=== PATIENT | male | born 1960 | race Caucasian/White ===

== ENCOUNTER 2024-03-09 09:53 | Emergency (ER) | payer BC, MEDICARE ==
[2024-03-09 10:54] LABS: Basophils % (A) 0 %; Eosinophils # (A) 0.1 k/uL (0-0.7); Eosinophils % (A) 0 %; HCT 43.4 % (39.0-53.0); HGB 14.1 gm/dL (13.0-17.5); Lymphocytes # (A) 1.6 k/uL (1.0-4.8); Lymphocytes % (A) 11 %; MCH 29.3 pg (25.0-35.0); MCHC 32.6 g/dL (31.0-37.0); Monocytes # (A) 1.4 k/uL (0-1.0); Monocytes % (A) 10 %; Neutrophils # (A) 11.2 k/uL (1.3-7.7); Neutrophils % (A) 75 %; Platelet Count 364 k/uL (150-450); RBC 4.82 m/uL (4.30-5.90); RDW 13.2 % (11.5-15.5); WBC 14.9 k/uL (3.8-10.6)
[2024-03-09] MEDS: MORPHINE SULFATE 4 MG/ML SYRINGE IVP STA (10:58)
[2024-03-09] MEDS: KETOROLAC 15 MG/ML 1 ML VIAL IVP STA (10:58)
[2024-03-09 11:04] LABS: ALT 29 U/L (4-49); AST 25 U/L (17-59); African American GFR (CKD) >90 (>60 ml/min/1.73 sqM); Albumin 3.7 g/dL (3.5-5.0); Alkaline Phosphatase 63 U/L (38-126); Anion Gap 4 mmol/L; Blood Urea Nitrogen 17 mg/dL (9-20); Calcium 9.3 mg/dL (8.4-10.2); Carbon Dioxide 28 mmol/L (22-30); Chloride 106 mmol/L (98-107); Glucose 121 mg/dL (74-99); Non-African American GFR(CKD) >90 (>60 ml/min/1.73 sqM); Potassium 4.3 mmol/L (3.5-5.1); Sodium 138 mmol/L (137-145); Total Bilirubin 1.1 mg/dL (0.2-1.3); Total Protein 6.5 g/dL (6.3-8.2)
--- NOTE | 2024-03-09 11:14 | ED ---
Extremity Problem HPI - General Chief complaint: Extremity Injury, Lower Stated complaint: L Foot Pain Time Seen by Provider: 03/09/24 10:14 Source: patient, RN notes reviewed Mode of arrival: ambulatory Limitations: no limitations - History of Present Illness Initial comments: This is a 64-year-old male who presents to the emergency department for left foot and ankle swelling. States that this started 2 to 3 days ago and seems to be getting worse. Denies any injuries. States that this has gotten to the point where he has been unable to ambulate. 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 Denies any fever/chills or nausea/vomiting. MD Complaint: extremity pain, extremity swelling - Related Data Home Medications Medication Instructions Recorded Confirmed Ibuprofen [Motrin] 800 mg PO BID 06/18/16 06/22/16 Simvastatin [Zocor] 80 mg PO DAILY 06/18/16 06/22/16 Previous Rx's Medication Instructions Recorded Cephalexin [Keflex] 500 mg PO Q6HR 7 Days #28 cap 03/09/24 HYDROcodone/APAP 5-325MG [Mary Alice 1 tab PO Q6HR PRN 3 Days #12 tab 03/09/24 5-325] Ibuprofen [Motrin] 800 mg PO Q8H #30 tab 03/09/24 Sulfamethox-Tmp 800-160Mg [Bactrim 1 tab PO Q12HR 7 Days #14 tab 03/09/24 DS 800-160 mg] Allergies Allergy/AdvReac Type Severity Reaction Status Date / Time ciprofloxacin Allergy Rash/Hives Verified 03/09/24 10:00 BEE STRINGS Allergy Anaphylaxis Uncoded 03/09/24 10:00 Review of Systems ROS Statement: Those systems with pertinent positive or pertinent negative responses have been documented in the HPI. ROS Other: All systems not noted in ROS Statement are negative. Past Medical History Past Medical History: Hyperlipidemia, Osteoarthritis (OA) Additional Past Medical History / Comment(s): HX LT RIB FX/PNEUMOTHORAX/CHEST TUBE, HX OF COLON POLYPS. History of Any Multi-Drug Resistant Organisms: MRSA Date of last positivie culture/infection: 2006 MDRO Source:: right heel Past Surgical History: No Surgical Hx Reported Additional Past Surgical History / Comment(s): RT ELBOW SX HAS PLATE/SCREWS, RT HEEL CRUSHED (SURGERY WITH HARDWARE AND HARDWARE REMOVAL).,COLONOSCOPY. Past Anesthesia/Blood Transfusion Reactions: No Reported Reaction Past Psychological History: No Psychological Hx Reported Smoking Status: Never smoker Past Alcohol Use History: Abuse Past Drug Use History: None Reported - Past Family History Father Family Medical History: Congestive Heart Failure (CHF) Additional Family Medical History / Comment(s): AT AGE 84-PAST HX BRAIN TUMOR HAD [place] TX IN PAST AND MULTIPLE PROBLEMS SINCE THEN. PITUITARY PROBLEMS Mother Family Medical History: Dementia Additional Family Medical History / Comment(s): . General Exam Limitations: no limitations, physical limitation General appearance: alert, in no apparent distress Head exam: Present: atraumatic, normocephalic, normal inspection Respiratory exam: Present: normal lung sounds bilaterally. Absent: respiratory distress, wheezes, rales, rhonchi, stridor Cardiovascular Exam: Present: regular rate, normal rhythm, normal heart sounds. Absent: systolic murmur, diastolic murmur, rubs, gallop, clicks Extremities exam: Present: other (Swelling, erythema, and warmth to the lateral aspect of the left foot and ankle. Full range of motion. 2+ DP and PT pulses. No calf tenderness.) Neurological exam: Present: alert, oriented X3, CN II-XII intact Psychiatric exam: Present: normal affect, normal mood Course Vital Signs 03/09/24 03/09/24 03/09/24 09:56 12:00 12:57 Temperature 97.6 F 97.9 F 98.2 F Pulse Rate 85 62 65 Respiratory 18 16 18 Rate Blood Pressure 121/72 114/70 135/72 O2 Sat by Pulse 95 97 Oximetry Medical Decision Making - Medical Decision Making This is a 64-year-old male who presents to the emergency department for left foot and ankle pain. Was pt. sent in by a medical professional or institution? @ -No Did you speak to anyone other than the patient for history? @ -No Did you review nursing and triage notes? @ -Yes, and I agree, it is accurate with regards to the patient's symptoms. Were old charts reviewed? @ -No Differential Diagnosis? @ -Differential Musculoskeletal: Muscular strain, contusion, ligament sprain, fracture, arthritis, septic arthritis, bursitis, cellulitis, muscle spasm, nerve compression, DVT, arterial occlusion, herpes zoster, electrolyte abnormality, tumor.... This is not meant to be in all inclusive list EKG interpreted by me (3pts min.)? @ -None obtained X-rays interpreted by me (1pt min.)? @ -X-ray of the left foot and ankle obtained. My interpretation identifies no evidence of osseous erosion. CT interpreted by me (1pt min.)? @ -Not obtained U/S interpreted by me (1pt. min.)? @ -Not obtained What testing was considered but not performed? (CT, X-rays, U/S, labs)? Why? @ -None What meds were considered but not given? Why? @ -None Did you discuss the management of the patient with other professionals? @ -No Did you reconcile home meds? @ -No Was smoking cessation discussed for >3mins.? @ -No Was critical care preformed (if so, how long)? @ -No Were there social determinants of health that impacted care today? How? (Homelessness, low income, unemployed, alcoholism, drug addiction, transportation, low edu. Level, literacy, decrease access to med. care, custodial, rehab)? @ -No Was there de-escalation of care discussed even if they declined? (Discuss DNR or withdrawal of care, Hospice)? @ -No What co-morbidities impacted this encounter? (DM, HTN, Smoking, COPD, CAD, Cancer, CVA, Hep., AIDS, mental health diagnosis, sleep apnea, morbid obesity)? @ -None Was patient admitted / discharged? @ -Discharged. Lab work demonstrates leukocytosis with a white blood cell count of 14.9. CRP elevated at 6.8. X-ray of the left foot and ankle obtained revealing no acute process. The swelling, erythema, tenderness, and warmth are suggestive of cellulitis. Gout cannot be excluded either, however this would be an irregular location for it. Pain was managed in the emergency department. He had full range of motion without any stiffness to suggest a septic joint. However, given his difficulty with ambulation I did offer admission. Patient however declined and wished to start with outpatient management first. Prescription for Bactrim, Keflex, and ibuprofen provided with dosing ins tructions reviewed. Strict return parameters discussed and he is otherwise advised to follow-up with his PCP. Undiagnosed new problem with uncertain prognosis? @ -None Drug Therapy requiring intensive monitoring for toxicity (Heparin, Nitro, Insulin, Cardizem)? @ -None Were any procedures done? @ -None Diagnosis/symptom? @ -Cellulitis Acute, or Chronic, or Acute on Chronic? @ -Acute Uncomplicated (without systemic symptoms) or Complicated (systemic symptoms)? @ -Uncomplicated Side effects of treatment? @ -None Exacerbation, Progression, or Severe Exacerbation] @ -Not applicable Poses a threat to life or bodily function? @ -No Return precautions reviewed in depth, the patient is instructed to return to the emergency department with any new, worsening, or concerning symptoms. Patient verbalized understanding. This case was discussed in detail with the attending ED physician, Dr. Mayorga. Presentation, findings, and treatment plan discussed in detail as well. - Lab Data Result diagrams: 03/09/24 10:39 03/09/24 10:39 Lab Results 03/09/24 03/09/24 03/09/24 Range/Units 10:39 10:39 10:39 WBC 14.9 H (3.8-10.6) k/uL RBC 4.82 (4.30-5.90) m/uL Hgb 14.1 (13.0-17.5) gm/dL Hct 43.4 (39.0-53.0) % MCV 90.0 (80.0-100.0) fL MCH 29.3 (25.0-35.0) pg MCHC 32.6 (31.0-37.0) g/dL RDW 13.2 (11.5-15.5) % Plt Count 364 (150-450) k/uL MPV 8.0 Neutrophils % 75 % Lymphocytes % 11 % Monocytes % 10 % Eosinophils % 0 % Basophils % 0 % Neutrophils # 11.2 H (1.3-7.7) k/uL Lymphocytes # 1.6 (1.0-4.8) k/uL Monocytes # 1.4 H (0-1.0) k/uL Eosinophils # 0.1 (0-0.7) k/uL Basophils # 0.0 (0-0.2) k/uL ESR 43 H (0-20) mm/Hr Sodium 138 (137-145) mmol/L Potassium 4.3 (3.5-5.1) mmol/L Chloride 106 (98-107) mmol/L Carbon Dioxide 28 (22-30) mmol/L Anion Gap 4 mmol/L BUN 17 (9-20) mg/dL Creatinine 0.80 (0.66-1.25) mg/dL Est GFR (CKD-EPI)AfAm >90 (>60 ml/min/1.73 sqM) Est GFR (CKD-EPI)NonAf >90 (>60 ml/min/1.73 sqM) Glucose 121 H (74-99) mg/dL Plasma Lactic Acid Dick 0.7 (0.7-2.0) mmol/L Calcium 9.3 (8.4-10.2) mg/dL Total Bilirubin 1.1 (0.2-1.3) mg/dL AST 25 (17-59) U/L ALT 29 (4-49) U/L Alkaline Phosphatase 63 (38-126) U/L C-Reactive Protein 6.8 H (<1.0) mg/dL Total Protein 6.5 (6.3-8.2) g/dL Albumin 3.7 (3.5-5.0) g/dL - Radiology Data Radiology results: report reviewed, image reviewed Disposition Clinical Impression: Cellulitis of left ankle Disposition: HOME SELF-CARE Instructions (If sedation given, give patient instructions): Cellulitis (ED) Additional Instructions: Return to the emergency department with any new, worsening, or concerning symptoms. Take both antibiotics as prescribed for 7 days. Take the ibuprofen 3 times daily on a consistent basis for at least 5 to 7 days to help with both pain and inflammation. Take the Mary Alice sparingly when your pain is the most severe. Follow up with your primary care provider in 1-2 days. Prescriptions: Sulfamethox-Tmp 800-160Mg [Bactrim DS 800-160 mg] 1 tab PO Q12HR 7 Days #14 tab Cephalexin [Keflex] 500 mg PO Q6HR 7 Days #28 cap Ibuprofen [Motrin] 800 mg PO Q8H #30 tab HYDROcodone/APAP 5-325MG [Mary Alice 5-325] 1 tab PO Q6HR PRN 3 Days #12 tab PRN Reason: Pain Is patient prescribed a controlled substance at d/c from ED?: Yes When asked, does pt state using other controlled substances?: No If prescribed controlled substance>3 days was MAPS reviewed?: Prescribed <3 Days Referrals: Lisa Magana MD [Primary Care Provider] - 1-2 days Time of Disposition: 12:38
[2024-03-09 11:36] LABS: C Reactive Protein 6.8 mg/dL (<1.0)
--- NOTE | 2024-03-09 12:25 | XR ---
EXAMINATION TYPE: XR ankle complete LT DATE OF EXAM: 03/09/2024 COMPARISON: NONE HISTORY: Pain TECHNIQUE: 3 views of the left ankle are submitted for evaluation. FINDINGS: There is no evidence for fracture or dislocation. Ankle mortise is intact. Soft tissues are within normal limits. IMPRESSION: 1. No evidence for acute fracture.
--- NOTE | 2024-03-09 12:25 | XR ---
EXAMINATION TYPE: XR foot complete LT DATE OF EXAM: 03/09/2024 CLINICAL HISTORY: pain TECHNIQUE: Frontal, lateral and oblique images of the left foot are obtained. COMPARISON: None. FINDINGS: There is no acute fracture/dislocation evident. Moderate narrowing first metatarsal phalan geal The overlying soft tissue appears unremarkable. IMPRESSION: There is no acute fracture or dislocation. ICD 10 NO FRACTURE, INITIAL EVALUATION
[2024-03-09] MEDS: cefTRIAXone IN SWFI 1,000 MG/10 ML SYRINGE IVP STA (12:41)
[2024-03-09 12:59] VITALS: BP 135/72; PULSE 65; RESP 18; TEMP 98.2
[2024-03-09 17:17] LABS: Erythrocyte Sedimentation Rate 43 mm/Hr (0-20)
== END 2024-03-09 12:59 | disposition home or self-care (01) ==
LOC: EC 09:53
DX: L03.116 Cellulitis of left lower limb (principal); R79.82 Elevated C-reactive protein (CRP); Z88.1 Allergy status to other antibiotic agents; Z91.030 Bee allergy status
CPT/HCPCS: 36415; 80053; 85652; 83605; 85025; 86140; 73610; 73630; 99284; 96374; 96375 ×2; J2270; J0696; J1885